=== PATIENT | male | born 1960 | race Caucasian/White ===

== ENCOUNTER 2017-01-04 08:39 | Day surgery (SDC) | payer OTHER ==
--- NOTE | ~2017-01-04 | EGD ---
EGD REPORT [facility] [address] [id number] NAME: PARUL SAXENA : [birth year] STATUS : REG [facility]#: [id number] AGE: 56 ADM/REG DATE : 01/04/17 MR#: [id number] REPORT SERV DATE: 01/04/17 DICTATED BY: CAMILO YOO DATE: 01/04/17 REPORT STATUS : Draft TRANSCRIBED BY: [employer] DATE: 01/04/17 [facility] Patient Name: Parul Saxena Date of : 1960 Attending MD: CAMILO YOO MD Procedure Date No Time: 01/04/2017 Procedure: Colonoscopy Indications: Screening for colorectal malignant neoplasm Referring MD: Dl Main Medicines: as per anesthesia Complications: No immediate complications. Procedure: Pre-Anesthesia Assessment: - ASA Grade Assessment: II - A patient with mild systemic disease. After I obtained informed consent, the scope was passed under direct vision. Throughout the procedure, the patient's blood pressure, pulse, and oxygen saturations were monitored continuously. The PCF [id number] was introduced through the anus and advanced to the cecum, identified by appendiceal orifice and ileocecal valve. The colonoscopy was performed without difficulty. The patient tolerated the procedure. The quality of the bowel preparation was fair. Findings: The perianal and digital rectal examinations were normal. A few small and large-mouthed diverticula were found in the sigmoid colon. Internal hemorrhoids were found during endoscopy and were mild. Impression: - Diverticulosis in the sigmoid colon. - Internal hemorrhoids. Recommendation: - Repeat colonoscopy in 10 years for surveillance. Procedure Code(s): --- Professional --- 07472, Colonoscopy, flexible, proximal to splenic flexure; diagnostic, with or without collection of specimen(s) by brushing or washing, with or without colon decompression (separate procedure) Diagnosis Code(s): --- Professional --- K64.8, Other hemorrhoids K57.30, Diverticulosis of large intestine without perforation or abscess without bleeding EGD REPORT [place] [address] [id number] NAME: PARUL SAXENA : 60 [place]US : [place] [facility] [place]#: [id number] AGE: 56 ADM/REG DATE : 01/04/17 MR#: [id number] REPORT SERV DATE: 01/04/17 DICTATED BY: CAMILO YOO. DATE: 01/04/17 REPORT STATUS : Draft TRANSCRIBED BY: Dole Tian DATE: 01/04/17 Z12.11, Encounter for screening for malignant neoplasm of colon CPT copyright 2013 [employer]. All rights reserved. The codes documented in this report are preliminary and upon invoice coder review may be revised to meet current compliance requirements. CAMILO YOO MD 01/04/2017 11:19 AM This report has been signed electronically. Number of Addenda: 0 Note Initiated On: 01/04/2017 10:52 AM Scope Withdrawal Time 0 hours 6 minutes 59 seconds [address] [id number]
[~2017-01-04 08:39] MED LIST: ALEVE220 MG PO; LIPITOR10 PO
== END 2017-01-04 23:59 | disposition home health service (06) ==
LOC: DMU 08:39
PROVIDERS: Internal Medicine Gastroenterology
PROC: 0DJD8ZZ Inspection of Lower Intestinal Tract, Via Natural or Artificial Opening Endoscopic (ICD-10-PCS; principal; 2017-01-04 10:00)
DX: Z12.11 Encounter for screening for malignant neoplasm of colon (principal); K57.30 Diverticulosis of large intestine without perforation or abscess without bleeding; K64.8 Other hemorrhoids; E78.00 Pure hypercholesterolemia, unspecified; Z98.890 Other specified postprocedural states